=== PATIENT | male | born 1945 | race Caucasian/White ===

== ENCOUNTER → 2016-08-25 | Outpatient (CLI) | payer MEDICARE, OTHER, MEDICAID ==
[~2016-08-25] MED LIST: AMIO200T2 PO; ASPI-586 PO; ASPI325T4 PO; BISO1TAB3 PO; CELE-63 PO; CETI10TA20 PO; CHOL5000 PO; CITA10TA4 PO; CITA40TA5; CLOP75TA28 PO; CTLP20T; CYAN10006 PO; DEXL60CA5 PO; FAMO-118 PO; FAMO40TA6 PO; GBPN300C PO; IPRA4AER; MELO-249 PO; METH5TAB2 PO; METO-270 PO; METO25TA2 PO; MGX400T PO; MNTL10T PO; MTC5T PO; NF-ESOM40C PO; NF-FLON16G NS; NITR0.4T SL; OMEP40CA36 PO; PRAV40TA PO; RANI300C PO; ROFL500T PO; SAW450CA4 PO; SULF1TAB34; TAMS0.4C2 PO; TRAZ-28 PO; TRM50T PO; ZLP10T PO; ZLP5T PO; ZOLP10TA PO; [UNRECOGNIZED DRUG - CODE] PO
--- NOTE | 2016-08-25 09:30 | Diagnostic Imaging Report ---
PROCEDURE: US abdomen complete. TECHNIQUE: Multiple real-time grayscale images were obtained over the abdomen in various projections. INDICATION: Generalized abdominal pain. COMPARISON: None. FINDINGS: The size and echogenicity of the liver are normal. There is no mass or intrahepatic biliary duct dilatation. The common bile duct is normal at 7 mm. There is cholelithiasis without cholecystitis. There is no splenomegaly. The pancreas is poorly visualized due to overlying bowel gas. The visualized IVC and aorta are normal. The right kidney measures 11 cm and the left 10 cm. There is no mass or hydronephrosis. No ascites. IMPRESSION: Cholelithiasis without cholecystitis. Dictated by: Dictated on workstation # [id number]
== END ==
LOC: RAD 08:32
PROVIDERS: ATTEND Family Medicine
DX: R10.84 Generalized abdominal pain (principal); K80.20 Calculus of gallbladder without cholecystitis without obstruction
CPT/HCPCS: 76700

== ENCOUNTER → 2016-09-03 | Outpatient (CLI) | payer MEDICARE, OTHER, MEDICAID | LOC: RAD 08:40 | PROVIDERS: ATTEND Family Medicine | DX: K80.20 Calculus of gallbladder without cholecystitis without obstruction (principal) | CPT/HCPCS: 78226; A9537; J2805 ==

== ENCOUNTER → 2016-10-25 | Outpatient (CLI) | payer MEDICARE, MEDICAID ==
[2016-10-25 15:24] LABS: MEAN CORPUSCULAR HEMOGLOBIN 30.1 PG (26.0-34.0); MEAN CORPUSCULAR HGB CONC 33.6 g/dL (31.0-37.0); MEAN CORPUSCULAR VOLUME 90 FL (80-100); MEAN PLATELET VOLUME 10.5 FL (6.0-9.5); PLATELET COUNT 216 10^3uL (150-450)
[2016-10-25 16:06] LABS: ANION GAP 12.6 MEQ/L (3-15); CALCULATED IONIZED CALCIUM 4.5 mg/dL (3.8-4.6); TOTAL PROTEIN 6.6 g/dL (6.4-8.5)
[2016-10-25 16:13] LABS: BAND NEUTROPHILS % 0 % (0-6); EOSINOPHILS % 9 % (0-4); LYMPHOCYTES # 1.3 #; MONOCYTES # 0.7 #; MONOCYTES % 12 % (3-11); RBC MORPH NORMAL (NORMAL); SEGMENTED NEUTROPHILS % 58 % (51-67); TOTAL CELLS COUNTED 100
== END ==
LOC: LAB 15:12
PROVIDERS: ATTEND Surgery
DX: K80.10 Calculus of gallbladder with chronic cholecystitis without obstruction (principal)
CPT/HCPCS: 36415; 80053; 85007; 85027

== ENCOUNTER 2016-10-29 09:25 | Day surgery (SDC) | payer MEDICARE, MEDICAID ==
--- NOTE | 2016-10-28 11:42 | NUR ---
EKG REQUESTED FROM DR. PURVIS IN [place]. NURSE TO CALL BACK.
[2016-10-29] VITALS (10 sets, daily range): BP systolic 123–167; BP diastolic 80–96
[~2016-10-29] VITALS: Ht 175.3 cm; Wt 66.4 kg
[~2016-10-29 09:25] MED LIST changes: +ACETAMINOPHEN 500 MG TAB (TYLENOL) PO SCH; -AMIO200T2 PO; -ASPI-586 PO; -ASPI325T4 PO; -BISO1TAB3 PO; -CELE-63 PO; -CETI10TA20 PO; -CHOL5000 PO; -CITA10TA4 PO; -CITA40TA5; -CLOP75TA28 PO; -CTLP20T; -CYAN10006 PO; -DEXL60CA5 PO; -FAMO-118 PO; -FAMO40TA6 PO; -GBPN300C PO; -IPRA4AER; +LACTATED RINGERS 1,000 ML IV SCH; -MELO-249 PO; -METH5TAB2 PO; -METO-270 PO; -METO25TA2 PO; -MGX400T PO; -MNTL10T PO; -MTC5T PO; -NF-ESOM40C PO; -NF-FLON16G NS; -NITR0.4T SL; -OMEP40CA36 PO; -PRAV40TA PO; -RANI300C PO; -ROFL500T PO; -SAW450CA4 PO; +SODIUM CHLORIDE FLUSH 3 ML SYR IV PRN; -SULF1TAB34; -TAMS0.4C2 PO; -TRAZ-28 PO; -TRM50T PO; -ZLP10T PO; -ZLP5T PO; -ZOLP10TA PO; -[UNRECOGNIZED DRUG - CODE] PO; +oxyCODONE IMMEDIATE RELEASE 5 MG (OXYIR) TAB PO SCH
[2016-10-29] MEDS ORDERED: BUPIVACAINE/EPINEPHRINE 0.25%-1:200,000 (MARCAINE) 30 ML VIAL INJ ONE (11:21)
[2016-10-29] MEDS ORDERED: MIDAZOLAM 2 MG/2 ML (VERSED) VIAL ONE (11:52)
[2016-10-29] MEDS ORDERED: ALFENTANIL 500 MCG/ML (ALFENTA) 5 ML AMP IV ONE (11:52)
[2016-10-29] MEDS ORDERED: PROPOFOL 20 ML IV ONE (11:53)
[2016-10-29] MEDS ORDERED: GLYCOPYRROLATE 0.2 MG/ML (ROBINUL) 1 ML VIAL ONE ×4 (13:41)
[2016-10-29] MEDS ORDERED: NEOSTIGMINE 1 MG/ML SYRINGE ONE ×3 (13:41)
[2016-10-29] MEDS ORDERED: diphenhydrAMINE 50 MG/ML INJ (BENADRYL) ONE (13:45)
[2016-10-29] MEDS ORDERED: ONDANSETRON 2 MG/ML (Z0FRAN) 2 ML VIAL ONE (13:46)
[2016-10-29] MEDS ORDERED: PHENYLEPHRINE 10 MG/ML (NEO-SYNEPHRINE 1%) 1 ML VIAL ONE (13:55)
[2016-10-29] MEDS ORDERED: KETOROLAC 60 MG/2 ML (TORADOL) VIAL IM ONE (14:03)
[2016-10-29] MEDS ORDERED: SUCCINYLCHOLINE 20 MG/ML 10 ML VIAL ONE (14:16)
[2016-10-29] MEDS ORDERED: ROCURONIUM 50 MG/5 ML (ZEMURON) VIAL IV ONE (14:16)
[2016-10-29] MEDS ORDERED: HYDROcodone/APAP 5 MG/325 MG (NORCO) TAB PO PRN (15:15)
[2016-10-29] MEDS ORDERED: ONDANSETRON 2 MG/ML (Z0FRAN) 2 ML VIAL IV PRN (15:15)
--- NOTE | 2016-10-29 15:15 | NUR ---
Pt admitted to [facility] via cart accompanied by Chester Mims RN and sister. Skin warm, dry, intact. Resprs nonlabored, even on RA. Pt alert, stating "I'm already done? I didn't think I had even gone in yet!". Changed into home clothes, ambulates to chair from cart with SBA; somewhat unsteady on his feet. H2O provided. IV SL at this time. Post op VS initiated.
--- NOTE | 2016-10-29 17:00 | NUR ---
PRN [place] given at this time for slight abd discomfort. Pt denies nausea. Tolerating CL and saltine crackers well. Post op VS continue. Sister at bedside. Sister had pain med script filled prior to discharge.
--- NOTE | 2016-10-29 17:44 | NUR ---
Discharge instructions reviewed with patient and sister, demonstrates understanding. Pt states the incisional soreness is much better after the [place]. SL removed with catheter tip intact. Resprs nonlabored, even on RA. Incisions clean, dry, intact. No redness or swelling noted. Pt dismissed at this time via ambulation accompanied by SELINA Salmeron and sister. Belongings and DC instructions sent with patient. Pt's sister took home meds with her. Appreciative of cares.
== END 2016-10-29 17:44 | disposition home or self-care (01) ==
LOC: ASC 09:25 → MED/SURG 15:19 → ASC 17:44
PROVIDERS: ATTEND Surgery
DX: K80.10 Calculus of gallbladder with chronic cholecystitis without obstruction (principal); I25.10 Atherosclerotic heart disease of native coronary artery without angina pectoris; Z87.891 Personal history of nicotine dependence; J44.9 Chronic obstructive pulmonary disease, unspecified; Z79.02 Long term (current) use of antithrombotics/antiplatelets; Z79.82 Long term (current) use of aspirin
CPT/HCPCS: 47563; 74300; 88304; 93005; A9270; J0330; J1200; J1885; J2250; J2370; J2710; J3490; J7120; Q9967